=== PATIENT | male | born 1990 | race Caucasian/White ===

== ENCOUNTER 2022-08-16 16:55 | Emergency (ER) | payer OTHER, SELFPAY ==
--- NOTE | ~2022-08-16 | CT_ITS ---
EXAMINATION: HEAD CT WITHOUT CONTRAST CERVICAL SPINE CT WITHOUT CONTRAST CLINICAL INFORMATION: Headache with neck pain. COMPARISON: None. TECHNIQUE: Contiguous axial imaging of the head was performed without the administration of IV contrast. Axial multidetector volumetric images were also performed through the cervical spine without intravenous contrast. Multiplanar reconstructed images in coronal and sagittal orientations were submitted. This CT examination was performed using dose optimization techniques as appropriate, variously including the following: *Automated exposure control *Adjustment of mA and/or kV according to patient size (this includes techniques or standardized protocols for targeted exams where dose is matched to indication/reason for exam; i.e. extremities or head) *Use of iterative reconstruction technique DOSE: 1021 mGy-cm FINDINGS: HEAD: There is no evidence of acute intracranial hemorrhage or territorial infarction. No abnormal mass-effect or midline shift. No extra-axial fluid collections. Fuller to white matter differentiation is well preserved. The ventricles are normal in size and configuration. There is no abnormal attenuation within the brain parenchyma. The soft tissues and osseous structures are normal. The sinuses and mastoid air cells are clear. CERVICAL SPINE: Vertebral body heights are normal. No fractures of the vertebral bodies or posterior elements. Vertebral alignment is normal. No subluxation. The craniocervical and atlantoaxial articulations are normal. Intervertebral disc heights are normal. No significant degenerative disc disease. Facet joints are normal. Central canal and neural foramina appear patent without appreciable stenoses. No significant paravertebral soft tissue swelling. Cervical soft tissues are unremarkable. Imaged portions of the lung apices are clear. CT/CT cervical spine wo IV con IMPRESSION: 1. No acute intracranial pathology. 2. No acute fracture or malalignment in the cervical spine.
[2022-08-16 17:58] VITALS: BP 130/78; PULSE 73; RESP 19; TEMP 36.6; O2SAT 100; BMI 28.0
--- NOTE | 2022-08-16 17:59 | ED_ITS ---
HPI - Headache General Chief Complaint: Headache <MICKI Adams - Last Filed: 08/16/22 18:01> Stated Complaint: Headaches <MICKI Adams - Last Filed: 08/16/22 18:01> Time Seen by Provider: 08/16/22 22:01 <MICKI Adams - Last Filed: 08/16/22 18:01> Source: patient <Ruchi Palacios NP - Last Filed: 08/16/22 22:44> Mode of arrival: ambulatory <Ruchi Palacios NP - Last Filed: 08/16/22 22:44> Limitations: no limitations <Ruchi Palacios NP - Last Filed: 08/16/22 22:44> History of Present Illness HPI Narrative: 32-year-old male presents with 10 days of a severe pressure headache. <Ruchi Palacios NP - Last Filed: 08/16/22 22:44> MD elicited complaint: headache and migraine <Ruchi Palacios NP - Last Filed: 08/16/22 22:44> Onset (ago): day(s) (10) <Ruchi Palacios NP - Last Filed: 08/16/22 22:44> Onset description: gradually <Ruchi Palacios NP - Last Filed: 08/16/22 22:44> Location: right and occipital <Ruchi Palacios NP - Last Filed: 08/16/22 22:44> Severity: severe <Ruchi Palacios NP - Last Filed: 08/16/22 22:44> Quality & Timing: first headache and worst headache of life <Ruchi Palacios NP - Last Filed: 08/16/22 22:44> Exacerbating factors: none <Ruchi Palacios NP - Last Filed: 08/16/22 22:44> Relieving factors: nothing <Ruchi Palacios NP - Last Filed: 08/16/22 22:44> Associated symptoms: photophobia and sensitivity to sound <Ruchi Palacios NP - Last Filed: 08/16/22 22:44> Treatments prior to arrival: acetaminophen and ibuprofen <Ruchi Palacios NP - Last Filed: 08/16/22 22:44> Related Data Home Medications: Previous Rx's Medication Instructions Recorded qzwjydjhpp-nsidmnjszwych-islipiwg 1 cap PO Q6H PRN migraine headache 08/16/22 50 mg-300 mg-40 mg capsule #10 caps (Fioricet) <MICKI Adams - Last Filed: 08/16/22 18:01> Allergies/Adverse Reactions: Allergies Allergy/AdvReac Type Severity Reaction Status Date / Time No Known Allergies Allergy Verified 08/16/22 17:57 <MICKI Adams - Last Filed: 08/16/22 18:01> Review of Systems Review of Systems: Constitutional: No Fever, No Chills ENT/Mouth: No Ear Pain, No Hoarseness, No sore throat Eyes: No Eye Pain, No Swelling, No Redness, No Foreign Body Cardiovascular: No Chest Pain, No SOB Respiratory: No Cough, No Dyspnea Gastrointestinal: No Nausea, No Vomiting, No Diarrhea, No abdominal Pain Genitourinary: No Dysuria, No Hematuria Musculoskeletal: No joint pain, No Myalgias, No Joint Swelling Skin: No Skin lacerations, No rash Neuro: No Weakness, No Numbness, No Paresthesias, No Loss of Consciousness, No Dizziness, positive Headache Psych: No Anxiety/Panic, No Depression <Ruchi Palacios NP - Last Filed: 08/16/22 22:44> Yes all other systems are reviewed and are negative <Ruchi Palacios NP - Last Filed: 08/16/22 22:44> PMFSH Past Medical History Attestation statement: The following information was validated with the patient. <Ruchi Palacios NP - Last Filed: 08/16/22 22:44> Source: old records reviewed <Ruchi Palacios NP - Last Filed: 08/16/22 22:44> Social History Social History: Social History Advance Directives: No Advance Directives Information Provided: Yes <MICKI Adams - Last Filed: 08/16/22 18:01> Physical Exam Vital Signs: Vital Signs: Last Vital Signs Temp 98.3 F 08/16/22 20:48 Pulse 63 08/16/22 20:48 Resp 18 08/16/22 20:48 BP 128/78 08/16/22 20:48 Pulse Ox 99 08/16/22 20:48 O2 Del Method 08/16/22 20:48 BMI result Body Mass Index 28.0 <MICKI Adams - Last Filed: 08/16/22 18:01> Vital Signs: Last Vital Signs Temp 98.3 F 08/16/22 20:48 Pulse 63 08/16/22 20:48 Resp 18 08/16/22 20:48 BP 128/78 08/16/22 20:48 Pulse Ox 99 08/16/22 20:48 O2 Del Method 08/16/22 20:48 BMI result Body Mass Index 28.0 <Ruchi Palacios NP - Last Filed: 08/16/22 22:44> Appearance: Alert. Oriented X3. No acute distress. Eyes: Pupils equal, round and reactive to light. EOMI. No pain on extraocular movements. ENT: Pharynx normal. Neck: Normal inspection. Neck supple. CVS: Normal heart rate and rhythm. Pulses normal. Respiratory: No respiratory distress. Breath sounds normal. Skin: Skin warm and dry. Normal skin color. Normal skin turgor. Extremities: No lower extremity edema. Gait well-balanced well coordinated. Neuro: No motor deficit. No sensory deficit. Cranial nerves 2-12 intact. <Ruchi Palacios NP - Last Filed: 08/16/22 22:44> Course Course Course Narrative: This is an RME: Additional HPI, ROS, PE not included below will be deferred to primary provider. 32-year-old male no medical history presenting to the emergency department with 9 days of headache progressively worsening, headache is localized to the occipital region, reporting some associated pressure behind right eye without vision changes or dizziness. Patient is reporting some photophobia. Tells me he typically does not get headaches of this is abnormal for him. Denies fevers, chills, neck pain, chest pain, shortness of breath, nausea, vomiting, abdominal pain, vision changes, dizziness NIH stroke scale 0. Physical exam benign. Ordered head CT, cervical spine CT, basic labs, inflammatory markers. <MICKI Adams - Last Filed: 08/16/22 18:01> This is an RME: Additional HPI, ROS, PE not included below will be deferred to primary provider. 32-year-old male no medical history presenting to the emergency department with 9 days of headache progressively worsening, headache is localized to the occipital region, reporting some associated pressure behind right eye without vision changes or dizziness. Patient is repor ting some photophobia. Tells me he typically does not get headaches of this is abnormal for him. Denies fevers, chills, neck pain, chest pain, shortness of breath, nausea, vomiting, abdominal pain, vision changes, dizziness NIH stroke scale 0. Physical exam benign. Ordered head CT, cervical spine CT, basic labs, inflammatory markers. 22:02 32-year-old male presents for 10 days of an occipital headache with right- sided eye pressure without vision changes or dizziness. Does not report any o ther physical symptoms, states that he has been taking [id number] medications with poor effect. He does drink several cups of coffee per day, but does not participate in any illicit drugs. Patient does have significant history, is an [place] , and works in security. Patient does not have any known exposure to toxic chemicals and knowing that he works with has a headache of similar presentation. His labs are negative. Low likelihood of meningitis as there are no meningeal signs. No indication of toxic exposure. NIH stroke scale 0. Shanique coma scale 15. Patient states he had some effect from the medications provided by provider in triage. Will give Fioricet. Callie schafer does not have a primary care physician, and would like to be established with [facility]. I will refer to Dr. Hurtado for continuity of care. Patient does understand that if his symptoms worsen or do not alleviate that he should return to the emergency department for further workup including MRI and lumbar puncture. Patient verbalized understanding of discharge instructions. Verbalized understandings of signs and symptoms indicating need for emergent intervention. <Ruchi Palacios, HORTICULTURAL MANAGER - Last Filed: 08/16/22 22:44> Medications Administered Discontinued Medications Generic Name Dose Route Start Last Admin Trade Name Freq PRN Reason Stop Dose Admin Diphenhydramine HCl 50 mg 08/16/22 17:58 08/16/22 20:56 Diphenhydramine Hcl 25 Mg Capsule PO 08/16/22 17:59 50 mg ONCE ONE Administration Ketorolac Tromethamine 30 mg 08/16/22 17:57 08/16/22 20:56 Ketorolac Tromethamine 30 Mg/Ml Vial IM 08/16/22 17:58 30 mg ONCE ONE Administration Metoclopramide HCl 10 mg 08/16/22 17:58 08/16/22 20:56 Metoclopramide Hcl 10 Mg Tablet PO 08/16/22 17:59 10 mg ONCE ONE Administration <MICKI Adams - Last Filed: 08/16/22 18:01> Medications Administered Discontinued Medications Generic Name Dose Route Start Last Admin Trade Name Cornelius PRCesario Reason Stop Dose Admin Diphenhydramine HCl 50 mg 08/16/22 17:58 08/16/22 20:56 Diphenhydramine Hcl 25 Mg Capsule PO 08/16/22 17:59 50 mg ONCE ONE Administration Ketorolac Tromethamine 30 mg 08/16/22 17:57 08/16/22 20:56 Ketorolac Tromethamine 30 Mg/Ml Vial IM 08/16/22 17:58 30 mg ONCE ONE Administration Metoclopramide HCl 10 mg 08/16/22 17:58 08/16/22 20:56 Metoclopramide Hcl 10 Mg Tablet PO 08/16/22 17:59 10 mg ONCE ONE Administration <Ruchi Palacios NP - Last Filed: 08/16/22 22:44> Medical Decision Making Differential Diagnosis Differential Diagnoses: The differential diagnosis associated with the presentation includes <Ruchi Palacios NP - Last Filed: 08/16/22 22:44> Complex migraine, CVA, subdural <Ruchi Palacios NP - Last Filed: 08/16/22 22:44> Lab Data MDM Lab Attestation statement: I reviewed the patient's lab results. <Ruchi Palacios NP - Last Filed: 08/16/22 22:44> Result Diagrams: 08/16/22 18:26 08/16/22 18:26 <MICKI Adams - Last Filed: 08/16/22 18:01> Labs: Lab Results 08/16/22 08/16/22 08/16/22 Range/Units 18:26 18:26 18:26 WBC 8.3 (4.8-10.8) X10*3/uL RBC 5.25 (4.60-5.80) X10*6/uL Hgb 14.8 (14.0-18.0) g/dl Hct 42.9 (42.0-52.0) % MCV 81.7 (80.0-98.0) fL MCH 28.2 (27.0-33.0) pg MCHC 34.5 (31.0-36.0) g/dl RDW 12.1 (11.0-16.0) % Plt Count 265 (160-400) X10*3/uL MPV 8.7 L (9.4-12.4) fL Immature Gran % (Auto) 0.2 (0.0-0.4) % Neut % (Auto) 66.2 (45-73) % Lymph % (Auto) 25.3 (20-40) % [place] % (Auto) 6.3 (2-11) % Eos % (Auto) 1.3 (0-4) % Baso % (Auto) 0.7 (0-2) % Lymph # (Auto) 2.1 (1.2-4.9) X10*3/uL [place] # (Auto) 0.5 (0.1-1.2) X10*3/uL Eos # (Auto) 0.1 (0.0-0.4) X10*3/uL Baso # (Auto) 0.1 (0.0-0.2) X10*3/uL Abs Immat Gran (auto) 0.02 (0.00-0.03) X10*3/uL Absolute Neuts (auto) 5.5 (2.0-8.3) x10*3/uL Absolute Nucleated RBC 0.000 (0.0-0.012) X10*3/uL Nucleated RBC % (auto) 0.0 (0.0-0.2) /100WBC ESR 7 (0-15) MM/HR Sodium 141 (135-145) mmol/L Potassium 4.1 (3.3-5.1) mmol/L Chloride 106 (96-108) mmol/L Carbon Dioxide 26 (22-29) mmol/L Anion Gap 13 (12-20) BUN 15 (9-16) mg/dL Creatinine 1.11 (0.5-1.4) mg/dL Estim Creat Clear Calc 102.9 Estimated GFR > 60 Random Glucose 122 H (60-115) mg/dL Calcium 9.6 (8.4-10.2) mg/dL Magnesium 2.2 (1.6-2.6) mg/dL Total Bilirubin 0.5 (0.0-1.0) mg/dL AST 18 (5-37) U/L ALT 23 (0-40) U/L Alkaline Phosphatase 108 (39-117) U/L C-Reactive Protein 0.44 (< or = 0.50) mg/dL Total Protein 7.1 (6.5-8.0) g/dL Albumin 4.6 (3.5-5.0) g/dL <MICKI Adams - Last Filed: 08/16/22 18:01> Lab Results 08/16/22 08/16/22 08/16/22 Range/Units 18:26 18:26 18:26 WBC 8.3 (4.8-10.8) X10*3/uL RBC 5.25 (4.60-5.80) X10*6/uL Hgb 14.8 (14.0-18.0) g/dl Hct 42.9 (42.0-52.0) % MCV 81.7 (80.0-98.0) fL MCH 28.2 (27.0-33.0) pg MCHC 34.5 (31.0-36.0) g/dl RDW 12.1 (11.0-16.0) % Plt Count 265 (160-400) X10*3/uL MPV 8.7 L (9.4-12.4) fL Immature Gran % (Auto) 0.2 (0.0-0.4) % Neut % (Auto) 66.2 (45-73) % Lymph % (Auto) 25.3 (20-40) % Penning[place] % (Auto) 6.3 (2-11) % Eos % (Auto) 1.3 (0-4) % Baso % (Auto) 0.7 (0-2) % Lymph # (Auto) 2.1 (1.2-4.9) X10*3/uL [place] # (Auto) 0.5 (0.1-1.2) X10*3/uL Eos # (Auto) 0.1 (0.0-0.4) X10*3/uL Baso # (Auto) 0.1 (0.0-0.2) X10*3/uL Abs Immat Gran (auto) 0.02 (0.00-0.03) X10*3/uL Absolute Neuts (auto) 5.5 (2.0-8.3) x10*3/uL Absolute Nucleated RBC 0.000 (0.0-0.012) X10*3/uL Nucleated RBC % (auto) 0.0 (0.0-0.2) /100WBC ESR 7 (0-15) MM/HR Sodium 141 (135-145) mmol/L Potassium 4.1 (3.3-5.1) mmol/L Chloride 106 (96-108) mmol/L Carbon Dioxide 26 (22-29) mmol/L Anion Gap 13 (12-20) BUN 15 (9-16) mg/dL Creatinine 1.11 (0.5-1.4) mg/dL Estim Creat Clear Calc 102.9 Estimated GFR > 60 Random Glucose 122 H (60-115) mg/dL Calcium 9.6 (8.4-10.2) mg/dL Magnesium 2.2 (1.6-2.6) mg/dL Total Bilirubin 0.5 (0.0-1.0) mg/dL AST 18 (5-37) U/L ALT 23 (0-40) U/L Alkaline Phosphatase 108 (39-117) U/L C-Reactive Protein 0.44 (< or = 0.50) mg/dL Total Protein 7.1 (6.5-8.0) g/dL Albumin 4.6 (3.5-5.0) g/dL <Ruchi Palacios NP - Last Filed: 08/16/22 22:44> Independent Interpretation I performed an independent interpretation of an: CT Scan <Ruchi Palacios NP - Last Filed: 08/16/22 22:44> Radiology Impression Discussion of test interpretation with radiology: I have reviewed the radiologist's reading. <Ruchi Palacios NP - Last Filed: 08/16/22 22:44> Radiologist Impression: EXAMINATION: HEAD CT WITHOUT CONTRAST CERVICAL SPINE CT WITHOUT CONTRAST CLINICAL INFORMATION: Headache with neck pain. COMPARISON: None. TECHNIQUE: Contiguous axial imaging of the head was performed without the administration of IV contrast. Axial multidetector volumetric images were also performed through the cervical spine without intravenous contrast. Multiplanar reconstructed images in coronal and sagittal orientations were submitted. This CT examination was performed using dose optimization techniques as appropriate, variously including the following: *Automated exposure control *Adjustment of mA and/or kV according to patient size (this includes techniques or standardized protocols for targeted exams where dose is matched to indication/reason for exam; i.e. extremities or head) *Use of iterative reconstruction technique DOSE: 1021 mGy-cm FINDINGS: HEAD: There is no evidence of acute intracranial hemorrhage or territorial infarction. No abnormal mass-effect or midline shift. No extra-axial fluid collections.? Fuller to white matter differentiation is well preserved. The ventricles are normal in size and configuration. ? There is no abnormal attenuation within the brain parenchyma. The soft tissues and osseous structures are normal.? The sinuses and mastoid air cells are clear. CERVICAL SPINE: Vertebral body heights are normal. No fractures of the vertebral bodies or posterior elements. Vertebral alignment is normal. No subluxation. The craniocervical and atlantoaxial articulations are normal. Intervertebral disc heights are normal. No significant degenerative disc disease. Facet joints are normal. Central canal and neural foramina appear patent without appreciable stenoses. No significant paravertebral soft tissue swelling. Cervical soft tissues are unremarkable. Imaged portions of the lung apices are clear. CT/CT head/brain wo IV con IMPRESSION: 1. No acute intracranial pathology. 2. No acute fracture or malalignment in the cervical spine <Ruchi Palacios NP - Last Filed: 08/16/22 22:44> External Record Review No prior records at this facility for this patient <Ruchi Palacios NP - Last Filed: 08/16/22 22:44> Prescription Management I considered prescription management with: Pain Medication and Other (Antiemetic) <Ruchi Palacios NP - Last Filed: 08/16/22 22:44> Discharge Plan Discharge Clinical Impression: Migraine <MICKI Adams - Last Filed: 08/16/22 18:01> Patient Disposition: Home, Self-Care <MICKI Adams - Last Filed: 08/16/22 18:01> Instructions: Migraine Headache (ED) <MICKI Adams - Last Filed: 08/16/22 18:01> Additional Instructions: You were evaluated for 10 days of a headache. Your lab values are unremarkable. Your blood sugars slightly elevated at 122. Lab values do not indicate any emergent findings CT scan of the head and cervical spine are negative for acute findings. Take Fioricet as directed. Limit caffeine intake. Please follow-up with Dr. Hurtado. It may take several months for you to become established with that primary care, please consider using the [facility] as needed primary care services. If your symptoms worsen, please return to the emergency department immediately Thank you for choosing this emergency department for evaluation. Please fo llow-up with primary care physician as needed. Return to the emergency department for any new, concerning, or worsening symptoms. <MICKI Adams - Last Filed: 08/16/22 18:01> Prescriptions: New vyxoulbnqw-klwzclaemzccl-zbij [Fioricet] 50-300-40 mg capsule 1 cap PO Q6H PRN (Reason: migraine headache) Qty: 10 0RF <MICKI Adams - Last Filed: 08/16/22 18:01> Referrals: Jaylon Hurtado MD [Physician] - 2 weeks (To establish primary care) <MICKI Adams - Last Filed: 08/16/22 18:01>
[2022-08-16 18:32] LABS: MANUAL DIFF FLAG NO
[2022-08-16 18:34] LABS: Basophils Absolute Auto 0.1 X10*3/uL (0.0-0.2); Basophils Percent Auto 0.7 % (0-2); Eosinophils Absolute Auto 0.1 X10*3/uL (0.0-0.4); Eosinophils Percent Auto 1.3 % (0-4); Hematocrit 42.9 % (42.0-52.0); Hemoglobin 14.8 g/dl (14.0-18.0); Imm Gran Abs Auto 0.02 X10*3/uL (0.00-0.03); Imm Gran Pct Auto 0.2 % (0.0-0.4); Lymphocytes Absolute Auto 2.1 X10*3/uL (1.2-4.9); Lymphocytes Percent Auto 25.3 % (20-40); Mean Corpuscular HGB Conc 34.5 g/dl (31.0-36.0); Mean Corpuscular Hemoglobin 28.2 pg (27.0-33.0); Mean Corpuscular Volume 81.7 fL (80.0-98.0); Mean Platelet Volume 8.7 fL (9.4-12.4); Monocytes Absolute Auto 0.5 X10*3/uL (0.1-1.2); Monocytes Percent Auto 6.3 % (2-11); Neutrophils Absolute Auto 5.5 x10*3/uL (2.0-8.3); Neutrophils Percent Auto 66.2 % (45-73); Platelet Count 265 X10*3/uL (160-400); Red Blood Count 5.25 X10*6/uL (4.60-5.80); Red Cell Distribution Width 12.1 % (11.0-16.0); White Blood Count 8.3 X10*3/uL (4.8-10.8)
[2022-08-16 19:12] LABS: Erythrocyte Sedimentation Rate 7 MM/HR (0-15)
[2022-08-16 19:15] LABS: Alanine Aminotransferase 23 U/L (0-40); Albumin Level 4.6 g/dL (3.5-5.0); Alkaline Phosphatase 108 U/L (39-117); Anion Gap 13 (12-20); Aspartate Amino Transferase 18 U/L (5-37); Bilirubin Total 0.5 mg/dL (0.0-1.0); Blood Urea Nitrogen 15 mg/dL (9-16); C Reactive Protein 0.44 mg/dL (< or = 0.50); Calcium 9.6 mg/dL (8.4-10.2); Carbon Dioxide 26 mmol/L (22-29); Chloride 106 mmol/L (96-108); Creatinine Clr Calc Pharmacy 102.9; Estimated Glomerular Filt Rate > 60; Glucose Random 122 mg/dL (60-115); Magnesium 2.2 mg/dL (1.6-2.6); Potassium 4.1 mmol/L (3.3-5.1); Sodium 141 mmol/L (135-145); Total Protein 7.1 g/dL (6.5-8.0)
[2022-08-16 20:48] VITALS: BP 128/78; PULSE 63; RESP 18; TEMP 36.8; O2SAT 99
[2022-08-16] MEDS: diphenhydrAMINE HCL 25 MG CAPSULE 50 MG PO (20:56)
[2022-08-16] MEDS: Ketorolac Tromethamine 30 MG/ML VIAL IM (20:56)
[2022-08-16] MEDS: Metoclopramide HCl 10 MG TABLET PO (20:56)
--- NOTE | 2022-08-16 21:08 | PC.NURSE ---
medicated per provider order. pt reporting 6/10 migraine/headache.
[2022-08-16] MEDS: Butalb/Acetamin/Caff 50/325/40 TABLET 1 TAB PO (22:42)
== END 2022-08-16 23:26 | disposition home or self-care (01) ==
PROVIDERS: Physician Assistant; Emergency Provider Internal Medicine
DX: G43.909 Migraine, unspecified, not intractable, without status migrainosus (principal); M54.2 Cervicalgia; Z79.899 Other long term (current) drug therapy
CPT/HCPCS: 36415; 70450; 72125; 80053; 83735; 85025; 85652; 86140; 96372; 99283; 99284; J1885